=== PATIENT | male | born 1965 | race Caucasian/White ===

== ENCOUNTER 2020-09-30 14:12 | Outpatient (REF) | payer BC, SELFPAY ==
--- NOTE | ~2020-09-30 | XR_ITS ---
EXAMINATION: XR CHEST CLINICAL INFORMATION: General medical evaluation. COMPARISON: None TECHNIQUE: 2 views of the chest were obtained. FINDINGS: No significant abnormality is noted involving the heart, lungs, mediastinum, bony thorax or soft tissues. XR/XR chest 2V IMPRESSION: Unremarkable chest examination.
== END 2020-09-30 14:13 | disposition home or self-care (01) ==
LOC: HO.HMGCX 14:12
PROVIDERS: PCP Internal Medicine; Visit Provider Internal Medicine
DX: R05 Cough (principal); J45.909 Unspecified asthma, uncomplicated; I10 Essential (primary) hypertension
CPT/HCPCS: 71046

== ENCOUNTER 2023-01-11 16:37 | Emergency (ER) | payer OTHER, BC, SELFPAY ==
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
[2023-01-11 16:41] VITALS: BP 167/85; PULSE 91; O2SAT 94
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
[2023-01-11 16:51] VITALS: BP 171/83; PULSE 88; RESP 20; TEMP 36.5; O2SAT 95; BMI 30.1
[2023-01-11] MEDS: Ibuprofen 400 MG TABLET PO (18:00)
[2023-01-11] MEDS: Acetaminophen 325 MG TABLET 975 MG PO (18:00)
--- NOTE | 2023-01-11 18:59 | PC.NURSE ---
collar in place, alert, nad, medicated as ordered, talking on phone, speech clear, skin wpd, awaiting ct results
[2023-01-11 19:30] VITALS: BP 140/82; PULSE 70; RESP 17; TEMP 37.1; O2SAT 97
--- NOTE | 2023-01-11 19:30 | MHC.EDTECH ---
Patient went to the bathroom
== END 2023-01-11 19:35 | disposition home or self-care (01) ==
PROVIDERS: Emergency Provider Student in an Organized Health Care Education/Training Program; PCP Internal Medicine
DX: Z04.1 Encounter for examination and observation following transport accident (principal); M79.18 Myalgia, other site
CPT/HCPCS: 70450; 72125; 99283; 99284

== ENCOUNTER 2023-01-28 12:56 | Outpatient (AMB) | payer OTHER, BC, SELFPAY ==
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
[2023-01-28 13:11] VITALS: BP 144/86; PULSE 67; O2SAT 97
== END 2023-01-28 14:13 | disposition home or self-care (01) ==
PROVIDERS: PCP Internal Medicine; Visit Provider Internal Medicine
DX: I10 Essential (primary) hypertension (principal); S19.9XXA Unspecified injury of neck, initial encounter
CPT/HCPCS: 99214

== ENCOUNTER 2023-02-24 11:27 | Outpatient (REF) | payer OTHER, SELFPAY ==
[2023-02-24 13:17] LABS: MANUAL DIFF FLAG NO
[2023-02-24 13:27] LABS: Basophils Percent Auto 0.5 % (0-2); Eosinophils Absolute Auto 0.7 X10*3/uL (0.0-0.4); Eosinophils Percent Auto 12.9 % (0-4); Hemoglobin 16.2 g/dl (14.0-18.0); Imm Gran Abs Auto 0.03 X10*3/uL (0.00-0.03); Imm Gran Pct Auto 0.5 % (0.0-0.4); Lymphocytes Absolute Auto 0.9 X10*3/uL (1.2-4.9); Lymphocytes Percent Auto 15.2 % (20-40); Mean Corpuscular HGB Conc 34.5 g/dl (31.0-36.0); Mean Corpuscular Hemoglobin 33.1 pg (27.0-33.0); Mean Corpuscular Volume 96.1 fL (80.0-98.0); Mean Platelet Volume 10.6 fL (9.4-12.4); Monocytes Absolute Auto 0.8 X10*3/uL (0.1-1.2); Monocytes Percent Auto 14.8 % (2-11); Neutrophils Absolute Auto 3.1 x10*3/uL (2.0-8.3); Neutrophils Percent Auto 56.1 % (45-73); Platelet Count 157 X10*3/uL (160-400); Red Blood Count 4.89 X10*6/uL (4.60-5.80); Red Cell Distribution Width 12.2 % (11.0-16.0); White Blood Count 5.6 X10*3/uL (4.8-10.8)
[2023-02-24 13:40] LABS: Appearance Urine Clear; Color Urine Yellow; Glucose Urine UA Negative (Negative); Leukocyte Esterase Urine Negative (Negative); Nitrite Urine Negative (Negative); Specific Gravity - Urine 1.025 (1.005-1.025); Urine Blood Negative (Negative); Urine Ketones Negative (Negative); Urine Protein Trace mg/dL (Neg-Trace)
[2023-02-24 13:41] LABS: Alanine Aminotransferase 55 U/L (0-40); Albumin Level 4.5 g/dL (3.5-5.0); Alkaline Phosphatase 111 U/L (39-117); Anion Gap 14 (12-20); Aspartate Amino Transferase 46 U/L (5-37); Bilirubin Total 0.8 mg/dL (0.0-1.0); Blood Urea Nitrogen 21 mg/dL (9-16); Carbon Dioxide 28 mmol/L (22-29); Chloride 102 mmol/L (96-108); Cholesterol 212 mg/dL (<200); Estimated Glomerular Filt Rate 57; Glucose Fasting 113 mg/dL (60-99); HDL Cholesterol 29 mg/dL (>40); LDL Cholesterol Calculated 132 mg/dL (<100); Potassium 5.1 mmol/L (3.3-5.1); Sodium 139 mmol/L (135-145); Total Protein 7.9 g/dL (6.5-8.0); Triglycerides 256 mg/dL (<150)
[2023-02-24 13:48] LABS: Bacteria Urine None Seen (None Seen); Hyaline Casts Urine 0-2 /LPF (0-2); RBC Urine 0-2 /HPF (0-2); Squamous Epithelial Cell Urine 0-2 /HPF (0-2); WBC Urine 0-5 /HPF (0-5)
[2023-02-24 14:20] LABS: PSA,Total (Free>4and<10) 1.47 ng/mL (0.00-4.00)
== END 2023-02-24 11:28 | disposition home or self-care (01) ==
LOC: HO.HMGCLDS 11:27
PROVIDERS: PCP Internal Medicine; Visit Provider Internal Medicine
DX: Z00.00 Encounter for general adult medical examination without abnormal findings (principal); Z12.5 Encounter for screening for malignant neoplasm of prostate; I10 Essential (primary) hypertension
CPT/HCPCS: 36415; 80053; 80061; 81001; 84153; 85025

== ENCOUNTER 2023-02-25 09:41 | Outpatient (AMB) | payer OTHER, BC, SELFPAY ==
[2023-02-25 09:52] VITALS: BP 130/78; PULSE 78; O2SAT 97; BMI 30.4
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
== END 2023-02-25 10:39 | disposition home or self-care (01) ==
PROVIDERS: PCP Internal Medicine; Visit Provider Internal Medicine
DX: S19.9XXA Unspecified injury of neck, initial encounter (principal); I10 Essential (primary) hypertension; R73.9 Hyperglycemia, unspecified; E78.5 Hyperlipidemia, unspecified
CPT/HCPCS: 99214

== ENCOUNTER 2023-05-21 12:43 | Outpatient (REF) | payer BC, SELFPAY ==
[2023-05-21 16:25] LABS: Alanine Aminotransferase 69 U/L (0-40); Albumin Level 4.6 g/dL (3.5-5.0); Alkaline Phosphatase 78 U/L (39-117); Anion Gap 12 (12-20); Aspartate Amino Transferase 52 U/L (5-37); Bilirubin Total 1.1 mg/dL (0.0-1.0); Blood Urea Nitrogen 18 mg/dL (9-16); Calcium 9.8 mg/dL (8.4-10.2); Carbon Dioxide 27 mmol/L (22-29); Chloride 106 mmol/L (96-108); Cholesterol 212 mg/dL (<200); Estimated Glomerular Filt Rate 59; Glucose Fasting 108 mg/dL (60-99); HDL Cholesterol 34 mg/dL (>40); LDL Cholesterol Calculated 155 mg/dL (<100); Potassium 4.4 mmol/L (3.3-5.1); Sodium 141 mmol/L (135-145); Total Protein 8.2 g/dL (6.5-8.0); Triglycerides 118 mg/dL (<150)
[2023-05-21 16:31] LABS: Estimated Average Glucose 114 mg/dL; Hemoglobin A1c % 5.6 % (<6.0)
[2023-05-22 10:27] LABS: LDL Cholesterol Direct 158 mg/dL (<100)
== END 2023-05-21 12:44 | disposition home or self-care (01) ==
LOC: HO.HMGCLDS 12:43
PROVIDERS: PCP Internal Medicine; Visit Provider Internal Medicine
DX: R73.9 Hyperglycemia, unspecified (principal); I10 Essential (primary) hypertension; E78.5 Hyperlipidemia, unspecified
CPT/HCPCS: 36415; 80053; 80061; 83036; 83721

== ENCOUNTER 2023-05-25 10:47 | Outpatient (AMB) | payer BC, SELFPAY ==
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
[2023-05-25 11:01] VITALS: BP 108/76; PULSE 73; O2SAT 97; BMI 30.5
== END 2023-05-25 12:30 | disposition home or self-care (01) ==
PROVIDERS: PCP Internal Medicine; Visit Provider Internal Medicine
DX: E78.5 Hyperlipidemia, unspecified (principal); R73.9 Hyperglycemia, unspecified; I10 Essential (primary) hypertension
CPT/HCPCS: 99214

== ENCOUNTER 2023-08-17 09:49 | Outpatient (REF) | payer BC, SELFPAY ==
--- NOTE | ~2023-08-17 | US_ITS ---
EXAMINATION: US ABDOMEN COMPLETE CLINICAL INFORMATION: Other specified abnormal findings of blood chemistry. Elevated liver function tests. COMPARISON: None available. TECHNIQUE: Real-time imaging of the abdominal viscera. Limited visualization due to bowel gas. FINDINGS: PANCREAS: Limited visualization of pancreatic tail and head. Imaged portion of pancreatic body is unremarkable. ABDOMINAL AORTA: Unremarkable. INFERIOR VENA CAVA: Visualized portions are normal. LIVER: Hepatomegaly with right hepatic lobe measuring 18.0 cm and left lobe 16.6 cm. Slightly lobulated hepatic contour. Increased hepatic parenchymal heterogeneity and echogenicity could be associated with hepatocellular disease/hepatic steatosis and substantially limits visualization. Correlation with liver function tests and clinical exam recommended to determine further management. GALLBLADDER: 5 x 5 x 4 mm gallbladder polyp. No gallbladder wall thickening. COMMON BILE DUCT: Normal in caliber measuring 0.57 cm in diameter. RIGHT KIDNEY: No hydronephrosis. No renal calculi. Limited visualization. The kidney measures 12.5 cm in maximum dimension. LEFT KIDNEY: No hydronephrosis. No renal calculi. Limited visualization. The kidney measures 12.6 cm in maximum dimension. SPLEEN: Splenomegaly. The spleen measures 15.1 cm in maximum dimension. FREE FLUID: None. US/US abdomen complete IMPRESSION: 1. Hepatomegaly with right hepatic lobe measuring 18.0 cm and left lobe 16.6 cm. Slightly lobulated hepatic contour. Increased hepatic parenchymal heterogeneity and echogenicity could be associated with hepatocellular disease/hepatic steatosis and substantially limits visualization. Correlation with liver function tests and clinical exam recommended to determine further management. 2. Splenomegaly. 3. A 5 mm gallbladder polyp.
[2023-08-17 13:39] LABS: Alanine Aminotransferase 51 U/L (0-40); Albumin Level 4.4 g/dL (3.5-5.0); Alkaline Phosphatase 88 U/L (39-117); Anion Gap 11 (12-20); Aspartate Amino Transferase 34 U/L (5-37); Bilirubin Total 0.7 mg/dL (0.0-1.0); Blood Urea Nitrogen 16 mg/dL (9-16); Carbon Dioxide 27 mmol/L (22-29); Chloride 103 mmol/L (96-108); Cholesterol 179 mg/dL (<200); Estimated Glomerular Filt Rate > 60; Glucose Fasting 99 mg/dL (60-99); HDL Cholesterol 25 mg/dL (>40); LDL Cholesterol Calculated 108 mg/dL (<100); Potassium 4.4 mmol/L (3.3-5.1); Sodium 137 mmol/L (135-145); Triglycerides 232 mg/dL (<150)
[2023-08-17 16:23] LABS: Estimated Average Glucose 114 mg/dL; Hemoglobin A1c % 5.6 % (<6.0)
[2023-08-18 08:42] LABS: HBS Num1 0.07 mIU/mL (0-7.99); HBsAGNum1 0.41 S/CO (0.00-0.99); Hepatitis B Core Antibody Nonreactive (Nonreactive); Hepatitis B Surface Antigen Negative (Negative); ~HepC Num1 0.18 S/CO (0.00-0.79); ~Hepatitis B Surface Antibody NONREACTIVE (Nonreactive); ~Hepatitis C Antibody Nonreactive (Nonreactive)
== END 2023-08-17 09:50 | disposition home or self-care (01) ==
LOC: HO.HMGCX 09:49
PROVIDERS: PCP Internal Medicine; Visit Provider Internal Medicine
DX: R79.89 Other specified abnormal findings of blood chemistry (principal); E78.5 Hyperlipidemia, unspecified; R73.9 Hyperglycemia, unspecified; I10 Essential (primary) hypertension
CPT/HCPCS: 36415; 76700; 80053; 80061; 83036; 86704; 86706; 86803; 87340

== ENCOUNTER 2023-08-31 13:50 | Outpatient (AMB) | payer BC, SELFPAY ==
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
[2023-08-31 14:30] VITALS: BP 122/78; PULSE 72; O2SAT 96
== END 2023-08-31 15:23 | disposition home or self-care (01) ==
PROVIDERS: PCP Internal Medicine; Visit Provider Internal Medicine
DX: E78.5 Hyperlipidemia, unspecified (principal); R73.9 Hyperglycemia, unspecified; I10 Essential (primary) hypertension; Z00.00 Encounter for general adult medical examination without abnormal findings; S19.9XXA Unspecified injury of neck, initial encounter; R79.89 Other specified abnormal findings of blood chemistry
CPT/HCPCS: 99214

== ENCOUNTER 2023-11-16 12:47 | Outpatient (AMB) | payer OTHER, BC, SELFPAY ==
[2023-11-16 12:49] VITALS: BP 122/80; PULSE 80; O2SAT 95; BMI 30.3
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
== END 2023-11-16 13:23 | disposition home or self-care (01) ==
PROVIDERS: PCP Internal Medicine; Visit Provider Internal Medicine
DX: S19.9XXA Unspecified injury of neck, initial encounter (principal); I10 Essential (primary) hypertension; E78.5 Hyperlipidemia, unspecified
CPT/HCPCS: 99213

== ENCOUNTER 2024-03-09 13:34 | Outpatient (AMB) | payer BC, SELFPAY ==
[2024-03-09 13:55] VITALS: BP 122/76; PULSE 70; O2SAT 97; BMI 29.4
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
== END 2024-03-09 15:14 | disposition home or self-care (01) ==
PROVIDERS: PCP Internal Medicine; Visit Provider Internal Medicine
DX: Z00.00 Encounter for general adult medical examination without abnormal findings (principal); I10 Essential (primary) hypertension; E78.5 Hyperlipidemia, unspecified; R73.9 Hyperglycemia, unspecified; F41.9 Anxiety disorder, unspecified

== ENCOUNTER → 2024-03-09 13:34 | Outpatient (BNVA) | payer BC, OTHER, SELFPAY | PROVIDERS: PCP Internal Medicine; Visit Provider Internal Medicine | DX: Z00.00 Encounter for general adult medical examination without abnormal findings (principal); I10 Essential (primary) hypertension; R79.89 Other specified abnormal findings of blood chemistry; E78.5 Hyperlipidemia, unspecified; R73.9 Hyperglycemia, unspecified; F41.9 Anxiety disorder, unspecified; Z79.899 Other long term (current) drug therapy ==

== ENCOUNTER 2024-06-08 12:29 | Outpatient (AMB) | payer BC, SELFPAY ==
[2024-06-08 12:31] VITALS: BP 118/74; PULSE 76; O2SAT 96; BMI 29.3
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
== END 2024-06-08 13:33 | disposition home or self-care (01) ==
PROVIDERS: PCP Internal Medicine; Visit Provider Internal Medicine
DX: I10 Essential (primary) hypertension (principal); S19.9XXA Unspecified injury of neck, initial encounter; E78.5 Hyperlipidemia, unspecified

== ENCOUNTER → 2024-06-08 12:29 | Outpatient (BNVA) | payer BC, OTHER, SELFPAY | PROVIDERS: PCP Internal Medicine; Visit Provider Internal Medicine | DX: I10 Essential (primary) hypertension (principal); E78.5 Hyperlipidemia, unspecified; G89.29 Other chronic pain; M54.2 Cervicalgia; S19.9XXS Unspecified injury of neck, sequela; Z79.899 Other long term (current) drug therapy | CPT/HCPCS: 96127 ==

== ENCOUNTER 2024-09-01 12:20 | Outpatient (REF) | payer BC, SELFPAY ==
[2024-09-01 13:45] LABS: MANUAL DIFF FLAG NO
[2024-09-01 13:52] LABS: Basophils Percent Auto 0.8 % (0-2); Eosinophils Absolute Auto 0.8 X10*3/uL (0.0-0.4); Eosinophils Percent Auto 16.7 % (0-4); Hematocrit 46.9 % (42.0-52.0); Hemoglobin 16.7 g/dl (14.0-18.0); Imm Gran Abs Auto 0.02 X10*3/uL (0.00-0.03); Imm Gran Pct Auto 0.4 % (0.0-0.4); Lymphocytes Absolute Auto 0.7 X10*3/uL (1.2-4.9); Lymphocytes Percent Auto 13.7 % (20-40); Mean Corpuscular HGB Conc 35.6 g/dl (31.0-36.0); Mean Corpuscular Hemoglobin 32.6 pg (27.0-33.0); Mean Corpuscular Volume 91.4 fL (80.0-98.0); Mean Platelet Volume 10.7 fL (9.4-12.4); Monocytes Absolute Auto 0.7 X10*3/uL (0.1-1.2); Neutrophils Absolute Auto 2.5 x10*3/uL (2.0-8.3); Neutrophils Percent Auto 53.4 % (45-73); Platelet Count 162 X10*3/uL (160-400); Red Blood Count 5.13 X10*6/uL (4.60-5.80); Red Cell Distribution Width 11.6 % (11.0-16.0); White Blood Count 4.7 X10*3/uL (4.8-10.8)
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
[2024-09-01 13:59] LABS: Estimated Average Glucose 111 mg/dL; Hemoglobin A1C 155.4979 umol/L; Hemoglobin A1c % 5.5 % (<6.0); Total Hemoglobin (HGBA1C) 4304.7804 umol/L
[2024-09-01 14:36] LABS: Alanine Aminotransferase 61 U/L (0-40); Albumin Level 4.5 g/dL (3.5-5.0); Alkaline Phosphatase 92 U/L (39-117); Anion Gap 11 (12-20); Aspartate Amino Transferase 53 U/L (5-37); Blood Urea Nitrogen 17 mg/dL (9-16); Calcium 9.6 mg/dL (8.4-10.2); Carbon Dioxide 27 mmol/L (22-29); Chloride 106 mmol/L (96-108); Cholesterol 205 mg/dL (<200); Estimated Glomerular Filt Rate > 60; Glucose Fasting 86 mg/dL (60-99); HDL Cholesterol 27 mg/dL (>40); LDL Cholesterol Calculated 151 mg/dL (<100); Potassium 4.3 mmol/L (3.3-5.1); Sodium 140 mmol/L (135-145); Total Protein 8.6 g/dL (6.5-8.0); Triglycerides 135 mg/dL (<150)
[2024-09-01 16:29] LABS: Appearance Urine Turbid; Color Urine Yellow; Glucose Urine UA Negative (Negative); Leukocyte Esterase Urine Negative (Negative); Nitrite Urine Negative (Negative); PH 5.5 (5.0-9.0); Urine Blood Negative (Negative); Urine Ketones Negative (Negative); Urine Protein Trace mg/dL (Neg-Trace)
[2024-09-01 16:34] LABS: Bacteria Urine None Seen (None Seen); Hyaline Casts Urine 0-2 /LPF (0-2); RBC Urine 0-2 /HPF (0-2); Squamous Epithelial Cell Urine 0-2 /HPF (0-2); WBC Urine 0-5 /HPF (0-5)
== END 2024-09-01 12:21 | disposition home or self-care (01) ==
LOC: HO.HMGCLDS 12:20
PROVIDERS: PCP Internal Medicine; Visit Provider Internal Medicine
DX: I10 Essential (primary) hypertension (principal); S19.9XXA Unspecified injury of neck, initial encounter; E78.5 Hyperlipidemia, unspecified; R73.9 Hyperglycemia, unspecified; Z00.00 Encounter for general adult medical examination without abnormal findings
CPT/HCPCS: 36415; 80053; 80061; 81001; 83036; 85025

== ENCOUNTER 2024-09-06 13:34 | Outpatient (AMB) | payer BC, SELFPAY ==
[2024-09-06 13:44] VITALS: BP 118/78; PULSE 72; RESP 18; TEMP 36.9; O2SAT 96; BMI 28.6
--- NOTE | 2024-09-06 13:44 | A.OFFPC_ITS ---
Vital Signs 09/06/24 13:44 Height 5 ft 11 in Weight 205 lb BMI 28.6 BP 118/78 Blood Pressure Location Lt brachial Position Sitting Respiration 18 Pulse 72 Pulse Source Pulse Oximeter Temp 98.4 F Temp Source Oral Pulse Oximetry (%) 96 Oxygen Delivery Method Room Air Intake Visit Reasons: 3m follow up Intake Note: Pt is here today for 3 month follow up visit. Allergies pravastatin Adverse Reaction (Intermediate, Verified 09/06/24 13:54) myalgia seasonal allegies Allergy (Unknown, Uncoded 09/06/24 13:54) unknown Tobacco use date assessed: 09/06/24 Dental Screening Dental Screen Date: 09/06/24 Did you have a dental visit in the last 12 months?: Yes Did you have a dental problem in the last 6 months where you did not have access to dental care?: No Was dental information given to patient?: Patient has dentist HPI 3m follow up HPI Details Pt presents for f/u HTN, hyperlipid, chronic neck pain due to cervical radiculopathy PFSH Medical History MARADIAGA (dyspnea on exertion) Asthma Cough HTN (hypertension) Annual physical exam Depression Anxiety Lower back pain Surgical History H/O colonoscopy Family History Father Cancer Bladder cancer Smoker Mother Cancer Breast cancer Social History Housing: House Alcohol intake: never Patient Tobacco Use Status: Never used Tobacco e-Cigarette/Vaping Use: Never Used service: No Current occupational status: employed Cognitive needs: No Hearing needs: No Vision needs: Yes Questionnaire PHQ-9 Over the last 2 weeks, how often have you been bothered by any of the following problems? 1. Little interest or pleasure in doing things: not at all 2. Feeling down, depressed, or hopeless: not at all 3. Trouble falling or staying asleep, or sleeping too much: not at all 4. Feeling tired or having little energy: not at all 5. Poor appetite or overeating: not at all 6. Feeling bad about yourself - or that you are a failure or have let yourself or your family down: not at all 7. Trouble concentrating on things, such as reading the newspaper or watching television: not at all 8. Moving or speaking so slowly that other people could have noticed. Or the opposite - being so fidgety or restless that you have been moving around a lot more than usual: not at all 9. Thoughts that you would be better off or of hurting yourself in some way: not at all Total score: 0 Depression Screening Interpretation: Negative Depression Screening Done: Yes 75816 - PHQ-9 Billing: Yes Source: Developed by Drs. Walt Astorga, Karen Tapia, Alex Lowery and colleagues, with an educational cat from [employer]. Thrive Questionnaire Date Thrive assessed: 09/06/24 I am a: Patient What is your living situation today?: I have a steady place to live Within the past 12 months, did the food you bought not last and you didn't have the money to get more?: Never true Within the past 12 months, did you worry whether your food would run out before you got money to buy more?: Never true Do you have trouble paying for medicines?: No Do you have trouble getting transportation to medical appointments?: No Do you have trouble paying your heating and electricity bill?: No Do you have trouble taking care of your child, family member or friend?: No Do you have trouble with day-to-day activities such as bathing, preparing meals, shopping, managing finances, etc.?: No Are you currently unemployed and looking for a job?: No Are you interested in more education?: No Please select the resources that you would like help with: None Currently or been in a relationship where the following occur: No concerns reported THRIVE Score: 0 AUDIT C Alcohol Use Questionnaire (AUDIT-C) 1. How often do you have a drink containing alcohol?: 2-3 times a week 2. How many drinks containing alcohol do you have on a typical day when you are drinking?: 1 or 2 3. How often do you have six or more drinks on one occasion?: Never Total Score: 3 JESS-7 AMB Questionnaire JESS-7 Date JESS - 7 assessed: 09/06/24 Feeling nervous, anxious, or on edge: 1 = Several days Not being able to stop or control worryin = Not at all Worrying too much about different things: 0 = Not at all Trouble relaxin = Not at all Being so restless that it is hard to sit still: 0 = Not at all Becoming easily annoyed or irritable: 1 = Several days Feeling afraid as if something awful might happen: 0 = Not at all Total JESS-7 score (0-4 normal; 5-9 mild; 10-14 moderate; 15-21 severe): 2 Source: Developed by Drs. Walt Astorga, Karen Tapai, Alex Lowery and colleagues, with an educational cat from [employer]. JESS-7 Assessment Billing JESS-7 Assessment Tool: JESS-7 Assessment 49733 Review of Systems Const All systems reviewed & are unremarkable except as noted in HPI and below Eyes Reports no additional complaints ENT Reports no additional complaints Card Reports no additional complaints Resp Reports no additional complaints GI Reports no additional complaints Reports no additional complaints Physical exam (Primary Care) Vital Signs: Last Vital Signs Temp 98.4 F 09/06/24 13:44 Pulse 72 09/06/24 13:44 Resp 18 09/06/24 13:44 BP 118/78 09/06/24 13:44 Pulse Ox 96 09/06/24 13:44 Oxygen Delivery Method Room Air 09/06/24 13:44 BMI result Body Mass Index 28.6 Tobacco/Smoking Status: Tobacco use Status Tobacco use date assessed 09/06/24 09/06/24 13:46 Patient Tobacco Use Status Never used Tobacco 09/06/24 13:46 e-Cigarette/Vaping Use Never Used 09/06/24 13:46 PHQ-9: PHQ-9 Score PHQ-9: Total score 0 09/06/24 13:46 Depression Screening Interpretation: Negative Thrive Assessment: Date of Thrive Assessment Date Thrive assessed 09/06/24 09/06/24 13:46 Currently or been in a relationship where the following occur: No concerns reported Const General: no acute distress HENMT Head: Yes normal to inspection Mouth: Normal oral and palatal mucosa present Throat: Yes posterior oropharynx normal Resp Effort & Inspection: normal respiratory effort Auscultation: clear to auscultation bilaterally Cardio Rhythm: regular rhythm Heart sounds: S1 normal heart sound present and S2 normal heart sound present Coding Level of Care Code Est Pt Level 4 (40993) Diagnoses HTN (hypertension) I10 Hyperglycemia R73.9 Hyperlipidemia E78.5 Additional Codes JESS-7 Assessment Billing - JESS-7 Assessment Tool: JESS-7 Assessment 42420 ([id number]) PHQ-9 - 56229 - PHQ-9 Billing: Yes ([id number]) Assessment & Plan Assessment & Plan (1) HTN (hypertension): Code(s): I10 - Essential (primary) hypertension Category: Medical Plan: Continue losartan (2) Hyperglycemia: Code(s): R73.9 - Hyperglycemia, unspecified Category: Medical Plan: ADA diet regular physical activity weight loss discussed with the patient (3) Hyperlipidemia: Comment: Intolerant to pravastatin Code(s): E78.5 - Hyperlipidemia, unspecified Category: Medical Plan: Continue low-cholesterol diet follow-up in 3 months with a fasting labs before Orders: Orders Microalbumin, Random (w Creat) 3 Months E78.5 - Hyperlipidemia, unspecified, I10 - Essential (primary) hypertension, R73.9 - Hyperglycemia, unspecified UA w Microscopic 3 Months E78.5 - Hyperlipidemia, unspecified, I10 - Essential (primary) hypertension, R73.9 - Hyperglycemia, unspecified Immunofixation Pnl, Serum 3 Months D64.9 - Anemia, unspecified, R73.9 - Hyperglycemia, unspecified, R80.9 - Proteinuria, unspecified Lipid Panel 3 Months E78.5 - Hyperlipidemia, unspecified, I10 - Essential (primary) hypertension, R73.9 - Hyperglycemia, unspecified LDL Cholesterol Direct 3 Months E78.5 - Hyperlipidemia, unspecified, I10 - Essential (primary) hypertension, R73.9 - Hyperglycemia, unspecified Complete Blood Count Auto Diff 3 Months E78.5 - Hyperlipidemia, unspecified, I10 - Essential (primary) hypertension, R73.9 - Hyperglycemia, unspecified Immunofixation, Random Urine 3 Months I10 - Essential (primary) hypertension, R73.9 - Hyperglycemia, unspecified, R80.9 - Proteinuria, unspecified Vitamin B12 and Folate 3 Months E78.5 - Hyperlipidemia, unspecified, I10 - Essential (primary) hypertension, R73.9 - Hyperglycemia, unspecified Medications: Refilled losartan 25 mg PO DAILY 90 tabs 3RF gabapentin 300 mg PO BEDTIME 90 caps 3RF Discontinued ezetimibe (Zetia) Discontinued Reason: Doctor's Order 10 mg PO DAILY 90 tabs 3RF
== END 2024-09-06 14:35 | disposition home or self-care (01) ==
LOC: HO.HMCC 13:35
PROVIDERS: PCP Internal Medicine; Visit Provider Internal Medicine
DX: I10 Essential (primary) hypertension (principal); R73.9 Hyperglycemia, unspecified; E78.5 Hyperlipidemia, unspecified

== ENCOUNTER → 2024-09-06 13:34 | Outpatient (BNVA) | payer BC, OTHER, SELFPAY | PROVIDERS: PCP Internal Medicine; Visit Provider Internal Medicine | DX: I10 Essential (primary) hypertension (principal); R73.9 Hyperglycemia, unspecified; E78.5 Hyperlipidemia, unspecified; M54.12 Radiculopathy, cervical region; Z79.899 Other long term (current) drug therapy | CPT/HCPCS: 96127 ==

== ENCOUNTER 2024-12-05 11:22 | Outpatient (REF) | payer BC, SELFPAY ==
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
[2024-12-05 13:16] LABS: MANUAL DIFF FLAG NO
[2024-12-05 13:16] LABS: Appearance Urine Cloudy; Color Urine Yellow; Glucose Urine UA Negative (Negative); Leukocyte Esterase Urine Negative (Negative); Nitrite Urine Negative (Negative); PH 5.5 (5.0-9.0); Specific Gravity - Urine 1.025 (1.005-1.025); UMIC TRIGGER UA YES; Urine Blood Negative (Negative); Urine Ketones Trace mg/dL (Negative); Urine Protein 30 (1+) mg/dL (Neg-Trace)
[2024-12-05 13:22] LABS: Bacteria Urine None Seen (None Seen); Hyaline Casts Urine 0-2 /LPF (0-2); RBC Urine 0-2 /HPF (0-2); Squamous Epithelial Cell Urine 0-2 /HPF (0-2); WBC Urine 0-5 /HPF (0-5)
[2024-12-05 13:36] LABS: Basophils Absolute Auto 0.1 X10*3/uL (0.0-0.2); Eosinophils Absolute Auto 0.6 X10*3/uL (0.0-0.4); Eosinophils Percent Auto 12.7 % (0-4); Hematocrit 46.1 % (42.0-52.0); Hemoglobin 16.1 g/dl (14.0-18.0); Imm Gran Abs Auto 0.02 X10*3/uL (0.00-0.03); Imm Gran Pct Auto 0.4 % (0.0-0.4); Lymphocytes Absolute Auto 0.9 X10*3/uL (1.2-4.9); Lymphocytes Percent Auto 19.3 % (20-40); Mean Corpuscular HGB Conc 34.9 g/dl (31.0-36.0); Mean Corpuscular Hemoglobin 32.7 pg (27.0-33.0); Mean Corpuscular Volume 93.5 fL (80.0-98.0); Mean Platelet Volume 10.6 fL (9.4-12.4); Monocytes Absolute Auto 0.7 X10*3/uL (0.1-1.2); Monocytes Percent Auto 14.3 % (2-11); Neutrophils Absolute Auto 2.5 x10*3/uL (2.0-8.3); Neutrophils Percent Auto 52.3 % (45-73); Platelet Count 167 X10*3/uL (160-400); Red Blood Count 4.93 X10*6/uL (4.60-5.80); Red Cell Distribution Width 13.2 % (11.0-16.0); White Blood Count 4.8 X10*3/uL (4.8-10.8)
[2024-12-05 13:40] LABS: Cholesterol 196 mg/dL (<200); HDL Cholesterol 37 mg/dL (>40); LDL Cholesterol Calculated 132 mg/dL (<100); Triglycerides 136 mg/dL (<150)
[2024-12-05 13:52] LABS: Creatinine Urine 216.23 mg/dL; Microalbum/Creatinine Ratio Ur 14.3 ug/mg cr (<30)
[2024-12-05 14:15] LABS: Folate 3.5 ng/mL (> or = 4.0); Vitamin B12 476 pg/mL (200-900)
[2024-12-06 16:58] LABS: LDL Cholesterol Direct 136 mg/dL (<100)
[2024-12-07 08:29] LABS: IgA 300 mg/dL (47-310); IgG 1490 mg/dL (600-1640); IgM 136 mg/dL (50-300)
== END 2024-12-05 11:23 | disposition home or self-care (01) ==
LOC: HO.HMGCLDS 11:22
PROVIDERS: PCP Internal Medicine; Visit Provider Internal Medicine
DX: E78.5 Hyperlipidemia, unspecified (principal); R73.9 Hyperglycemia, unspecified; I10 Essential (primary) hypertension; D64.9 Anemia, unspecified; R80.9 Proteinuria, unspecified
CPT/HCPCS: 80061; 81001; 82043; 82570; 82607; 82746; 82784; 83721; 85025; 86334; 86335

== ENCOUNTER 2024-12-11 13:00 | Outpatient (AMB) | payer BC, SELFPAY ==
--- NOTE | 2024-12-11 13:27 | A.OFFPC_ITS ---
Vital Signs 12/11/24 13:28 Height 5 ft 11 in Weight 204 lb BMI 28.4 BP 118/72 Blood Pressure Location Lt brachial Position Sitting Respiration 18 Pulse 68 Pulse Source Pulse Oximeter Temp 98.1 F Temp Source Oral Pulse Oximetry (%) 97 Oxygen Delivery Method Room Air Intake Visit Reasons: 3 months f/up Intake Note: Pt is here today for 3 months follow up visit on labs. Allergies pravastatin Adverse Reaction (Intermediate, Verified 12/11/24 13:28) myalgia seasonal allegies Allergy (Unknown, Uncoded 12/11/24 13:28) unknown Medication List - Last Reconciled 12/11/24 by Sunita Negron MD albuterol sulfate 90 mcg/actuation (ProAir HFA) 2 puffs inhalation QID ezetimibe 10 mg PO DAILY lidocaine 5% 1 patch topical DAILY losartan 25 mg PO DAILY sildenafil (Viagra) 100 mg PO DAILY PRN tizanidine 2 mg PO BEDTIME Tobacco use date assessed: 12/11/24 Dental Screening Dental Screen Date: 09/06/24 HPI 3 months f/up HPI Details Patient presents for the follow-up on hypertension and hyperlipidemia. [facility] Medical History MARADIAGA (dyspnea on exertion) Asthma Cough HTN (hypertension) Annual physical exam Depression Anxiety Lower back pain Surgical History H/O colonoscopy Family History Father Cancer Bladder cancer Smoker Mother Cancer Breast cancer Social History Housing: House Alcohol intake: never Patient Tobacco Use Status: Never used Tobacco e-Cigarette/Vaping Use: Never Used service: No Current occupational status: employed Cognitive needs: No Hearing needs: No Vision needs: Yes Questionnaire PHQ-9 Over the last 2 weeks, how often have you been bothered by any of the following problems? 6. Feeling bad about yourself - or that you are a failure or have let yourself or your family down: not at all 7. Trouble concentrating on things, such as reading the newspaper or watching television: not at all 8. Moving or speaking so slowly that other people could have noticed. Or the opposite - being so fidgety or restless that you have been moving around a lot more than usual: not at all 9. Thoughts that you would be better off or of hurting yourself in some way: not at all Source: Developed by Drs. Walt Astorga, Karen Tapia, Alex Lowery and colleagues, with an educational cat from [employer]. Thrive Questionnaire Date Thrive assessed: 09/03/24 I am a: Patient What is your living situation today?: I have a steady place to live Within the past 12 months, did the food you bought not last and you didn't have the money to get more?: Never true Within the past 12 months, did you worry whether your food would run out before you got money to buy more?: Never true Do you have trouble paying for medicines?: No Do you have trouble getting transportation to medical appointments?: No Do you have trouble paying your heating and electricity bill?: No Do you have trouble taking care of your child, family member or friend?: No Do you have trouble with day-to-day activities such as bathing, preparing meals, shopping, managing finances, etc.?: No Are you currently unemployed and looking for a job?: No Are you interested in more education?: No Please select the resources that you would like help with: None Currently or been in a relationship where the following occur: No concerns reported THRIVE Score: 0 JESS-7 AMB Questionnaire JESS-7 Date JESS - 7 assessed: 09/06/24 Source: Developed by Drs. Walt Astorga, Karen Tapia, Alex Lowery and colleagues, with an educational cat from [employer]. Review of Systems Const All systems reviewed & are unremarkable except as noted in HPI and below Eyes Reports no additional complaints ENT Reports no additional complaints Card Reports no additional complaints Resp Reports no additional complaints GI Reports no additional complaints Physical exam (Primary Care) Vital Signs: Last Vital Signs Temp 98.1 F 12/11/24 13:28 Pulse 68 12/11/24 13:28 Resp 18 12/11/24 13:28 BP 118/72 12/11/24 13:28 Pulse Ox 97 12/11/24 13:28 Oxygen Delivery Method Room Air 12/11/24 13:28 BMI result Body Mass Index 28.4 Tobacco/Smoking Status: Tobacco use Status Tobacco use date assessed 12/11/24 12/11/24 13:30 Patient Tobacco Use Status Never used Tobacco 12/11/24 13:30 e-Cigarette/Vaping Use Never Used 12/11/24 13:30 Thrive Assessment: Date of Thrive Assessment Date Thrive assessed 09/03/24 12/11/24 13:30 Currently or been in a relationship where the following occur: No concerns reported Const General: no acute distress HENMT Head: Yes normal to inspection Mouth: Normal oral and palatal mucosa present Throat: Yes posterior oropharynx normal Eyes General: appearance normal, both eyes and all related structures Neck Neck: Yes no lymphadenopathy and Yes supple Resp Effort & Inspection: normal respiratory effort Auscultation: clear to auscultation bilaterally Cardio Rhythm: regular rhythm Heart sounds: S1 normal heart sound present and S2 normal heart sound present GI Inspection: Yes normal to inspection Palpation (GI): Soft to palpation Percussion: Yes normal to percussion Auscultation: normal bowel sounds Coding Level of Care Code Est Pt Level 4 (29816) Diagnoses HTN (hypertension) I10 Hyperglycemia R73.9 Hyperlipidemia E78.5 Elevated LFTs R79.89 Assessment & Plan Assessment & Plan (1) HTN (hypertension): Code(s): I10 - Essential (primary) hypertension Category: Medical Plan: Continue losartan (2) Hyperglycemia: Code(s): R73.9 - Hyperglycemia, unspecified Category: Medical Plan: ADA diet regular exercise discussed with the patient. (3) Hyperlipidemia: Comment: Intolerant to pravastatin Code(s): E78.5 - Hyperlipidemia, unspecified Category: Medical Plan: Continue Zetia (4) Elevated LFTs: Comment: Liver ultrasound enlarged fatty liver 08/14, patient stopped alcohol mid Jun 2023 Code(s): R79.89 - Other specified abnormal findings of blood chemistry Category: Medical Plan: Avoidance of alcohol NSAIDs and simple carbohydrates discussed with the patient Orders: Orders Lipid Panel 3 Months E78.5 - Hyperlipidemia, unspecified, I10 - Essential (primary) hypertension, R73.9 - Hyperglycemia, unspecified, R79.89 - Other specified abnormal findings of blood chemistry TSH reflex Free T4 3 Months E78.5 - Hyperlipidemia, unspecified, I10 - Essential (primary) hypertension, R73.9 - Hyperglycemia, unspecified, R79.89 - Other specified abnormal findings of blood chemistry Comprehensive [place]. Panel Fast 3 Months E78.5 - Hyperlipidemia, unspecified, I10 - Essential (primary) hypertension, R73.9 - Hyperglycemia, unspecified, R79.89 - Other specified abnormal findings of blood chemistry Complete Blood Count Auto Diff 3 Months E78.5 - Hyperlipidemia, unspecified, I10 - Essential (primary) hypertension, R73.9 - Hyperglycemia, unspecified, R79.89 - Other specified abnormal findings of blood chemistry PSA,Total (Free>4and<10) 3 Months E78.5 - Hyperlipidemia, unspecified, I10 - Essential (primary) hypertension, R73.9 - Hyperglycemia, unspecified, R79.89 - Other specified abnormal findings of blood chemistry UA w Microscopic 3 Months I10 - Essential (primary) hypertension Hemoglobin A1c 3 Months R73.9 - Hyperglycemia, unspecified Referrals Gastroenterology Referral Z00.00 - Encounter for general adult medical examination without abnormal findings Medications: New ezetimibe 10 mg PO DAILY 90 tabs 3RF folic acid 0.4 mg PO DAILY 90 tabs 3RF Discontinued duloxetine Discontinued Reason: Doctor's Order 30 mg PO DAILY 90 caps 3RF
[2024-12-11 13:28] VITALS: BP 118/72; PULSE 68; RESP 18; TEMP 36.7; O2SAT 97; BMI 28.4
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
== END 2024-12-11 15:11 | disposition home or self-care (01) ==
LOC: HO.HMCC 13:01
PROVIDERS: PCP Internal Medicine; Visit Provider Internal Medicine
DX: I10 Essential (primary) hypertension (principal); R73.9 Hyperglycemia, unspecified; E78.5 Hyperlipidemia, unspecified

== ENCOUNTER → 2024-12-11 13:00 | Outpatient (BNVA) | payer BC, OTHER, SELFPAY | PROVIDERS: PCP Internal Medicine; Visit Provider Internal Medicine | DX: Z13.89 Encounter for screening for other disorder (principal) ==

== ENCOUNTER 2025-03-12 11:37 | Outpatient (REF) | payer BC, SELFPAY ==
[2025-03-12 12:58] LABS: MANUAL DIFF FLAG NO
[2025-03-12 13:06] LABS: Appearance Urine Clear; Glucose Urine UA Negative (Negative); PH 5.5 (5.0-9.0); Specific Gravity - Urine 1.020 (1.005-1.025)
[2025-03-12 13:16] LABS: Hematocrit 44.7 % (42.0-52.0); Hemoglobin 15.2 g/dl (14.0-18.0); Imm Gran Abs Auto 0.02 X10*3/uL (0.00-0.03); Imm Gran Pct Auto 0.5 % (0.0-0.4); Lymphocytes Absolute Auto 0.7 X10*3/uL (1.2-4.9); Mean Corpuscular HGB Conc 34.0 g/dl (31.0-36.0); Mean Corpuscular Hemoglobin 33.2 pg (27.0-33.0); Mean Corpuscular Volume 97.6 fL (80.0-98.0); NRBC Abs Auto 0.000 X10*3/uL (0.0-0.012); NRBC Pct Auto 0.0 /100WBC (0.0-0.2); Platelet Count 133 X10*3/uL (160-400); Red Blood Count 4.58 X10*6/uL (4.60-5.80); White Blood Count 4.3 X10*3/uL (4.8-10.8)
[2025-03-12 13:26] LABS: Hemoglobin A1C 153.8663 umol/L; Total Hemoglobin (HGBA1C) 4072.2725 umol/L
[2025-03-12 14:09] LABS: PSA,Total (Free>4and<10) 1.88 ng/mL (0.00-4.00)
[2025-03-12 14:10] LABS: Alanine Aminotransferase 107 U/L (0-40); Albumin Level 4.5 g/dL (3.5-5.0); Alkaline Phosphatase 79 U/L (39-117); Anion Gap 9 (12-20); Aspartate Amino Transferase 83 U/L (5-37); Blood Urea Nitrogen 15 mg/dL (9-16); Calcium 9.2 mg/dL (8.4-10.2); Carbon Dioxide 28 mmol/L (22-29); Chloride 105 mmol/L (96-108); Cholesterol 176 mg/dL (<200); Estimated Glomerular Filt Rate > 60; HDL Cholesterol 37 mg/dL (>40); Potassium 4.8 mmol/L (3.3-5.1); Sodium 137 mmol/L (135-145); Total Protein 7.5 g/dL (6.5-8.0); Triglycerides 106 mg/dL (<150)
== END 2025-03-12 11:38 | disposition home or self-care (01) ==
LOC: HO.HMGCLDS 11:37
PROVIDERS: PCP Internal Medicine; Visit Provider Internal Medicine
DX: I10 Essential (primary) hypertension (principal); E78.5 Hyperlipidemia, unspecified; R73.9 Hyperglycemia, unspecified; Z12.5 Encounter for screening for malignant neoplasm of prostate
CPT/HCPCS: 36415; 80053; 80061; 81001; 83036; 84153; 84443; 85025

== ENCOUNTER 2025-03-16 13:07 | Outpatient (AMB) | payer BC, SELFPAY ==
[2025-03-16 13:18] VITALS: BP 120/78; PULSE 65; RESP 18; TEMP 36.7; O2SAT 96; BMI 29.6
--- NOTE | 2025-03-16 13:18 | A.OFFPC_ITS ---
Vital Signs 03/16/25 13:18 Height 5 ft 11 in Weight 212 lb BMI 29.6 BP 120/78 Blood Pressure Location Lt brachial Position Sitting Respiration 18 Pulse 65 Pulse Source Pulse Oximeter Temp 98.1 F Temp Source Oral Pulse Oximetry (%) 96 Oxygen Delivery Method Room Air Intake Visit Reasons: Annual PE Intake Note: Pt is here today for PE. Allergies pravastatin Adverse Reaction (Intermediate, Verified 03/16/25 13:23) myalgia seasonal allegies Allergy (Unknown, Uncoded 03/16/25 13:23) unknown Medication List - Last Reconciled 03/16/25 by Sunita Negron MD albuterol sulfate 90 mcg/actuation (ProAir HFA) 2 puffs inhalation QID ezetimibe 10 mg PO DAILY folic acid 0.4 mg PO DAILY lidocaine 5% 1 patch topical DAILY losartan 25 mg PO DAILY sildenafil (Viagra) 100 mg PO DAILY PRN tizanidine 2 mg PO BEDTIME Tobacco use date assessed: 12/11/24 Dental Screening Dental Screen Date: 03/16/25 Did you have a dental visit in the last 12 months?: Yes Did you have a dental problem in the last 6 months where you did not have access to dental care?: No Was dental information given to patient?: Patient has dentist HPI Annual PE HPI Details Patient presents for physical. Patient has a process of approval C- spine surgery as a works med comp after injury at work. [facility]LY [facility] Medical History MARADIAGA (dyspnea on exertion) Asthma Cough HTN (hypertension) Annual physical exam Depression Anxiety Lower back pain Surgical History H/O colonoscopy Family History Father Cancer Bladder cancer Smoker Mother Cancer Breast cancer Social History Housing: House Alcohol intake: never Patient Tobacco Use Status: Never used Tobacco e-Cigarette/Vaping Use: Never Used service: No Current occupational status: employed Cognitive needs: No Hearing needs: No Vision needs: Yes Questionnaire PHQ-9 Over the last 2 weeks, how often have you been bothered by any of the following problems? 1. Little interest or pleasure in doing things: not at all 2. Feeling down, depressed, or hopeless: not at all 3. Trouble falling or staying asleep, or sleeping too much: not at all 4. Feeling tired or having little energy: not at all 5. Poor appetite or overeating: not at all 6. Feeling bad about yourself - or that you are a failure or have let yourself or your family down: not at all 7. Trouble concentrating on things, such as reading the newspaper or watching television: not at all 8. Moving or speaking so slowly that other people could have noticed. Or the opposite - being so fidgety or restless that you have been moving around a lot more than usual: not at all 9. Thoughts that you would be better off or of hurting yourself in some way: not at all Total score: 0 Depression Screening Interpretation: Negative Depression Screening Done: Yes Source: Developed by Drs. Walt Astorga, Karen Tapia, Alex Lowery and colleagues, with an educational cat from [employer]. Thrive Questionnaire Date Thrive assessed: 09/03/24 I am a: Patient What is your living situation today?: I have a steady place to live Within the past 12 months, did the food you bought not last and you didn't have the money to get more?: Never true Within the past 12 months, did you worry whether your food would run out before you got money to buy more?: Never true Do you have trouble paying for medicines?: No Do you have trouble getting transportation to medical appointments?: No Do you have trouble paying your heating and electricity bill?: No Do you have trouble taking care of your child, family member or friend?: No Do you have trouble with day-to-day activities such as bathing, preparing meals, shopping, managing finances, etc.?: No Are you currently unemployed and looking for a job?: No Are you interested in more education?: No Please select the resources that you would like help with: None Currently or been in a relationship where the following occur: No concerns reported THRIVE Score: 0 JESS-7 AMB Questionnaire JESS-7 Date JESS - 7 assessed: 09/06/24 Feeling nervous, anxious, or on edge: 0 = Not at all Not being able to stop or control worryin = Not at all Worrying too much about different things: 0 = Not at all Trouble relaxin = Not at all Being so restless that it is hard to sit still: 0 = Not at all Becoming easily annoyed or irritable: 0 = Not at all Feeling afraid as if something awful might happen: 0 = Not at all Total JESS-7 score (0-4 normal; 5-9 mild; 10-14 moderate; 15-21 severe): 0 Source: Developed by Drs. Walt Astorga, Karen Tapia, Alex Lowery and colleagues, with an educational cat from [employer]. Review of Systems Const All systems reviewed & are unremarkable except as noted in HPI and below Eyes Reports no additional complaints ENT Reports no additional complaints Card Reports no additional complaints Resp Reports no additional complaints GI Reports no additional complaints Reports no additional complaints Physical exam (Primary Care) Vital Signs: Last Vital Signs Temp 98.1 F 03/16/25 13:18 Pulse 65 03/16/25 13:18 Resp 18 03/16/25 13:18 BP 120/78 03/16/25 13:18 Pulse Ox 96 03/16/25 13:18 Oxygen Delivery Method Room Air 03/16/25 13:18 BMI result Body Mass Index 29.6 Tobacco/Smoking Status: Tobacco use Status Tobacco use date assessed 12/11/24 03/16/25 13:19 Patient Tobacco Use Status Never used Tobacco 03/16/25 13:19 e-Cigarette/Vaping Use Never Used 03/16/25 13:19 PHQ-9: PHQ-9 Score PHQ-9: Total score 0 03/16/25 13:28 Depression Screening Interpretation: Negative Thrive Assessment: Date of Thrive Assessment Date Thrive assessed 09/03/24 03/16/25 13:19 Currently or been in a relationship where the following occur: No concerns reported Const General: no acute distress HENMT Head: Yes normal to inspection Mouth: Normal oral and palatal mucosa present Neck Neck: Yes supple Resp Effort & Inspection: normal respiratory effort Auscultation: clear to auscultation bilaterally Cardio Rhythm: regular rhythm Heart sounds: S1 normal heart sound present and S2 normal heart sound present GI Inspection: Yes normal to inspection Palpation (GI): Soft to palpation Percussion: Yes normal to percussion Auscultation: normal bowel sounds Coding Level of Care Code Est Pt Prev Care 40-64y(37217) Diagnoses HTN (hypertension) I10 Hyperlipidemia E78.5 Elevated LFTs R79.89 Annual physical exam Z00.00 Assessment & Plan Assessment & Plan (1) HTN (hypertension): Code(s): I10 - Essential (primary) hypertension Category: Medical Plan: Continue losartan (2) Hyperlipidemia: Comment: Intolerant to pravastatin Code(s): E78.5 - Hyperlipidemia, unspecified Category: Medical Plan: Continue Zetia (3) Elevated LFTs: Comment: Liver ultrasound enlarged fatty liver 08/14, patient drinks 2 cocktails daily and does not want to stop Code(s): R79.89 - Other specified abnormal findings of blood chemistry Category: Medical Plan: Decreasing caloric intake increasing physical activity and avoidance of simple carbohydrates discussed, follow-up in 6 months with a fasting labs before (4) Annual physical exam: Code(s): Z00.00 - Encounter for general adult medical examination without abnormal findings Category: Medical Plan: Well-balanced diet regular physical activity discussed with the patient he will have a colonoscopy. Patient will return in 6 months with a fasting labs before Orders: Orders Comprehensive [place]. Panel Fast 6 Months E78.5 - Hyperlipidemia, unspecified, I10 - Essential (primary) hypertension, R73.9 - Hyperglycemia, unspecified, R79.89 - Other specified abnormal findings of blood chemistry Lipid Panel 6 Months E78.5 - Hyperlipidemia, unspecified, I10 - Essential (primary) hypertension, R73.9 - Hyperglycemia, unspecified, R79.89 - Other specified abnormal findings of blood chemistry UA w Microscopic 6 Months E78.5 - Hyperlipidemia, unspecified, I10 - Essential (primary) hypertension, R73.9 - Hyperglycemia, unspecified, R79.89 - Other specified abnormal findings of blood chemistry Hemoglobin A1c 6 Months R73.9 - Hyperglycemia, unspecified Vitamin B12 and Folate 6 Months E78.5 - Hyperlipidemia, unspecified, I10 - Essential (primary) hypertension, R73.9 - Hyperglycemia, unspecified, R79.89 - Other specified abnormal findings of blood chemistry Vitamin B1 6 Months E78.5 - Hyperlipidemia, unspecified, I10 - Essential (primary) hypertension, R73.9 - Hyperglycemia, unspecified, R79.89 - Other specified abnormal findings of blood chemistry Vitamin D 25-OH Total 6 Months E78.5 - Hyperlipidemia, unspecified, I10 - Essential (primary) hypertension, R73.9 - Hyperglycemia, unspecified, R79.89 - Other specified abnormal findings of blood chemistry Complete Blood Count Auto Diff 6 Months E78.5 - Hyperlipidemia, unspecified, I10 - Essential (primary) hypertension, R73.9 - Hyperglycemia, unspecified, R79.89 - Other specified abnormal findings of blood chemistry
== END 2025-03-16 14:10 | disposition home or self-care (01) ==
LOC: HO.HMCC 13:08
PROVIDERS: PCP Internal Medicine; Visit Provider Internal Medicine
DX: I10 Essential (primary) hypertension (principal); E78.5 Hyperlipidemia, unspecified; R79.89 Other specified abnormal findings of blood chemistry; Z00.00 Encounter for general adult medical examination without abnormal findings

== ENCOUNTER 2025-04-17 09:34 | Day surgery (SDC) | payer BC, SELFPAY ==
--- OUTSIDE RECORDS SUMMARY | 2025-03-26 16:11 | XMS_ITS | Patient Health Record ---
Author Organization [facility] Address [address] [place] [address] Care Team Providers Care Assistant Manager Retail Name Role Phone Sunita Negron MD Primary Care Provider Jacob Bermeo Jr Unavailable Allergies No Known Allergies Reason For Referral No Information Medications Medication SIG (Take, Route, Frequency, Duration) Notes Start Date End Date Status Losartan Potassium 25 MG 1 tablet Orally Once a day Active Immunizations Vaccine Route Administration Date Status Comme nts Influenza Unknown 03/26/2025 Refused Social History Tobacco Use: Social History Observation Description Date Details (start date - stop date) Never Smoker NA - NA Tobacco Control (Standard) Question Answer Notes Tobacco use: Nonsmoker AUDIT-C (Standard) Question Answer Notes Did you have a drink contain ing alcohol in the past year? Yes How often did you have a dri nk containing alcohol in the past year? Daily or almost daily (4 points) How many drinks did you have on a typical day when you were drinking in the past year? 1 or 2 drinks (0 point) How often did you have six o r more drinks on one occasion in the past year? Never (0 point) Points 4 Interpretation Positive Problems Problem Type SNOMED Code ICD Code Onset Dates Problem Status W/U Status Risk Notes Problem Screening for malignant neoplasm of colon (782285321) Encounter for screening for malignant neoplasm of colon (Z12.11) Active confirmed Problem Pre-procedure evaluation check (895798114) Encounter for other preprocedural examination (Z01.818) Active confirmed Vital Signs Temperature 98.4 degrees Fahrenheit 03/26/2025 Blood pressure diastolic 01 mm Hg 03/26/2025 Height 71 in 03/26/2025 Blood pressure systolic 001 mm Hg 03/26/2025 Weight 214.6 lbs 03/26/2025 BMI 29.93 kg/m2 03/26/2025 Encounters Encounter Location Date Provider Diagnosis [facility] [address] [place] [address] 03/26/2025 Jacob Storm Jr Encounter for screening for malignant neoplasm of colon Z12.11 and Encounter for other preprocedural examination Z01.818 Assessments Encounter Date Diagnosis (ICD Code) Assessment Notes Treatment Notes Treatment Clinical Notes Section Notes 03/26/2025 Encounter for screening for malignant neoplasm of colon (ICD-10 - Z12.11) We discussed colonoscopy today. We discussed risks and benefits of the procedure today. He understands these and agrees to proceed. This will be scheduled at his convenience. 03/26/2025 Encounter for other preprocedural examination (ICD-10 - Z01.818) We discussed colonoscopy today. We discussed risks and benefits of the procedure today. He understands these and agrees to proceed. This will be scheduled at his convenience. Plan Of Treatment Future Test Test Name Order Date COLONOSCOPY 03/26/2025 Next Appt Details Provider Name:Jacob summers Jr, 04/17/2025 11:00:00 AM, [address] [facility] , [place], [place], [id number], Insurance Providers Payer Name Payer Address Payer Phone Subscriber Number Group Number Insured Name Patient Relationship to Insured Coverage Start Date Coverage End Date [facility] [address] [place] [address] [phone] [id number] LEEANNA ETIENNE Self - patient is the insured Medical (General) History Medical History History ICD Code Hypertension Anxiety/depression Disc disease, cervical Environmental allergies
[2025-04-13 12:59] VITALS: BMI 29.9
--- NOTE | 2025-04-13 13:07 | HO.ANESPROP2 ---
HPI - Anesthesia Eval Consult details Narrative: 59yo M for Colonoscopy PMFSH Active Problems Active Problems: All Active Problems Proteinuria (Acute) Anemia (Acute) Elevated LFTs (Acute) Hyperlipidemia (Acute) Hyperglycemia (Acute) Neck injury (Acute) Anxiety (Acute) MARADIAGA (dyspnea on exertion) (Acute) Asthma (Acute) Cough (Acute) HTN (hypertension) (Acute) Annual physical exam (Acute) Past Medical History Medical History (Updated 04/13/25 @ 12:58 by Marcela Valladares, RN) Environmental allergies DDD (degenerative disc disease), cervical Seasonal allergies MARADIAGA (dyspnea on exertion) Asthma Cough HTN (hypertension) Annual physical exam Depression Anxiety Lower back pain Family History Family History Father Cancer Bladder cancer Smoker Mother Cancer Breast cancer Surgical History Surgical History (Updated 04/17/25 @ 09:53 by Delphine Dodd RN) History of tonsillectomy H/O wisdom tooth extraction H/O colonoscopy (2014) Social History Social History (Updated 04/13/25 @ 12:59 by Marcela Valladares, AROLDO) Housing: House Alcohol intake: never Patient Tobacco Use Status: Never used Tobacco e-Cigarette/Vaping Use: Never Used Have you been hit, kicked, punched, or otherwise hurt by someone within the past year? If so, by whom?: No Are you DNR?: No Advance Directives: No Advance Directives Information Provided: Yes service: No Current occupational status: employed Cognitive needs: No Hearing needs: No Vision needs: Yes Meds Allergies Allergy/AdvReac Type Severity Reaction Status Date / Time pravastatin AdvReac Intermediate myalgia Verified 03/16/25 13:23 seasonal allegies Allergy Unknown unknown Uncoded 03/16/25 13:23 Home Medications ?Medication ?Instructions ?Recorded ?Confirmed ?Last Taken ?Type tizanidine 2 mg tablet 2 mg PO BEDTIME 11/16/23 04/13/25 Unknown History Exam Height,Weight and Vital Signs: Height 5 ft 11 in Weight 97.239 kg Assessment and Plan Assessment Anesthesia Assessment: Chart Reviewed
[2025-04-17 09:37] VITALS: BP 117/75; PULSE 66; RESP 18; TEMP 36.1; O2SAT 96; BMI 29.4
[2025-04-17] MEDS: Lactated Ringers 1,000 ML 100 ML IVCONT (10:02)
--- NOTE | 2025-04-17 10:09 | MHC.SHP ---
Pre-Procedural Eval Section A - 24 Hr Update-Section A only Date of Service: 04/17/25 The patient is an INPATIENT: No Changes since office visit: No Cold of Flu in the past 2 weeks, No New Medical Problems, No Changes in Medication and No Patient answered all questions The patient has been examined within 24 hours of the surgical procedure. The History & Physical has been completed within 30 days and I have reviewed it.: Yes Section B - Complete if H&P > 30 days Chief Complaint: screening Allergies: Allergies Allergy/AdvReac Type Severity Reaction Status Date / Time pravastatin AdvReac Intermediate myalgia Verified 03/16/25 13:23 seasonal allegies Allergy Unknown unknown Uncoded 03/16/25 13:23 Plan I have reviewed the history and physical and performed a pertinent physical examination on my patient. No changes have occurred unless specified. Time Spent With Patient Time: Total time managing care of this patient today ____ minutes.
[2025-04-17 11:29] VITALS: BP 108/74; PULSE 78; RESP 16; TEMP 36.1; O2SAT 94
[2025-04-17 11:42] VITALS: BP 125/75; PULSE 64; RESP 16; TEMP 36.1; O2SAT 95
--- NOTE | 2025-04-17 11:58 | OP_ITS ---
DATE OF SERVICE: 04/17/2025 SURGEON: Jacob Storm MD INDICATIONS: Colon cancer screening. PREOPERATIVE DIAGNOSIS: POSTOPERATIVE DIAGNOSIS: PROCEDURE PERFORMED: Colonoscopy to the terminal ileum with snare polypectomy. ESTIMATED BLOOD LOSS: COMPLICATIONS: ANESTHESIA: Monitored anesthesia care. ASSISTANTS: SPECIMENS: DESCRIPTION OF PROCEDURE: A history and physical were performed. The risks and benefits of the procedure were explained to the patient. Informed consent was obtained. The patient was placed in the left lateral decubitus position. A digital rectal exam was performed and was found to be normal. The Olympus pediatric video colonoscope was introduced into the rectum and advanced to the cecum. The cecum was identified by transillumination, palpation, and identification of ileocecal valve. Examination was performed. The scope was removed. He tolerated the procedure well and was returned to recovery area in stable condition. FINDINGS: The terminal ileum was examined and appeared normal. The visualized colonic mucosa was normal. The quality of the prep was good. The single polyp measuring approximately 8 mm identified in the cecum. This was removed with a cold snare and recovered via suction. No other polyps were identified. There was chao-diverticulosis. Retroflexed examination showed internal hemorrhoids. IMPRESSION: Colon polyp. RECOMMENDATION: Follow up the biopsy results. MD JENNIFER Teixeira/NILAM / [id number] MTDD
== END 2025-04-17 12:10 | disposition home or self-care (01) ==
PROVIDERS: PCP Internal Medicine; Visit Provider Internal Medicine Gastroenterology
PROC: 0DJD8ZZ Inspection of Lower Intestinal Tract, Via Natural or Artificial Opening Endoscopic (ICD-10-PCS; CPT 45378; principal; 2025-04-17 11:00)
DX: Z12.11 Encounter for screening for malignant neoplasm of colon (principal); D12.0 Benign neoplasm of cecum; K57.30 Diverticulosis of large intestine without perforation or abscess without bleeding; K64.8 Other hemorrhoids; I10 Essential (primary) hypertension; F41.8 Other specified anxiety disorders; M50.30 Other cervical disc degeneration, unspecified cervical region; Z91.09 Other allergy status, other than to drugs and biological substances; Z79.899 Other long term (current) drug therapy
CPT/HCPCS: 45385; 88305; J2704